=== PATIENT | female | born 1990 | race Caucasian/White ===

== ENCOUNTER 2021-03-22 21:00 | Inpatient (IN) | payer MEDICAID, OTHER ==
[~2021-03-22] VITALS: Ht 154.9 cm; Wt 98.0 kg
[~2021-03-22 21:00] MED LIST: OMEP10 PO
[2021-03-22 22:06] LABS: COVID AG,FIA SOURCE NASOPHARYNGEAL
[2021-03-22 22:14] LABS: BASOPHILS % (AUTO) 0.9 % (0.0-2.0); EOSINOPHILS % (AUTO) 0.4 % (1.0-6.0); HEMATOCRIT 39.8 % (36-46); HEMOGLOBIN 13.1 g/dL (12.0-16.0); LYMPHOCYTES # (AUTO) 1.6 K/uL (1.0-4.8); MEAN CORPUSCULAR HEMOGLOBIN 26.4 pg (26.0-34.0); MEAN CORPUSCULAR HGB CONC 32.8 G/dL (31.0-37.0); MEAN CORPUSCULAR VOLUME 80 fL (80-100); MONOCYTES # (AUTO) 0.5 K/uL (0.1-1.0); MONOCYTES % (AUTO) 7.2 % (2.0-9.0); NEUTROPHILS # (AUTO) 5.3 K/uL (1.8-7.7); NEUTROPHILS % (AUTO) 70.5 % (40.0-70.0); PLATELET COUNT (AUTO) 248 K/uL (150-450); RED BLOOD CELL COUNT(AUTO) 4.96 MIL/uL (4.00-5.20); RED CELL DISTRIBUTION WIDTH 15.9 % (11.5-14.5)
[2021-03-22 22:20] LABS: AMPHET/METH SCREEN,URINE NEGATIVE (NEGATIVE); BARBITURATE SCREEN, URINE NEGATIVE (NEGATIVE); BENZODIAZEPINES SCREEN,URINE NEGATIVE (NEGATIVE); CANNABINOID SCREEN,URINE NEGATIVE (NEGATIVE); COCAINE SCREEN,URINE NEGATIVE (NEGATIVE); METHADONE SCREEN, URINE NEGATIVE (NEGATIVE); OPIATE SCREEN,URINE NEGATIVE (NEGATIVE)
[2021-03-22 22:22] LABS: PHENCYCLIDINE SCREEN,URINE NEGATIVE (NEGATIVE)
[2021-03-22 22:39] LABS: SALICYLATE < 2.8 mg/dL (2.8-20.0)
[2021-03-22 22:44] LABS: ALANINE AMINOTRANSFERASE 18 U/L (12-78); ALBUMIN 3.5 g/dL (3.4-5.0); ALKALINE PHOSPHATASE 87 U/L (46-116); ANION GAP 14 mmol/L (8-16); ASPARTATE AMINOTRANSFERASE 20 U/L (15-37); BILIRUBIN,TOTAL 0.2 mg/dL (0.1-1.0); CALCIUM, TOTAL 8.6 mg/dL (8.8-10.5); CARBON DIOXIDE 20 mmol/L (22-29); CHLORIDE 105 mmol/L (98-107); CREATININE 0.75 mg/dL (0.60-1.30); GLOMERULAR FILTR. RATE CALC > 60 mL/min (>60); GLUCOSE,RANDOM 105 mg/dL (70-110); HCG,QUANTITATIVE < 1 mIU/mL (0-6); SODIUM SERUM 139 mmol/L (136-145); TOTAL PROTEIN, SERUM 8.1 g/dL (6.4-8.2); UREA NITROGEN, BLOOD 7 mg/dL (7-18)
[2021-03-22 22:51] LABS: POTASSIUM 2.9 mmol/L (3.5-5.1)
[2021-03-22 22:52] LABS: ACETAMINOPHEN < 2 mcg/mL (10-30)
[2021-03-22] MEDS ORDERED: LORazepam 2 MG TABLET PO PRN (23:00)
[2021-03-22] MEDS ORDERED: HALOPERIDOL 5 MG TABLET PO PRN (23:00)
[2021-03-22] MEDS ORDERED: ZOLPIDEM TARTRATE 10 MG TABLET PO PRN (23:00)
[2021-03-22] MEDS ORDERED: POTASSIUM CHLORIDE 20 MEQ ER TABLET PO ONE (23:00)
[2021-03-23] MEDS ORDERED: PERTUSS(ACELL),DIPH,TET VAC/PF 0.5 ML SYRINGE IM. ONE (01:45)
[2021-03-23 01:47] LABS: CHOL/HDL RATIO 4.4 (3.9-5.7); CHOLESTEROL 142 mg/dL (131-200); HDL CHOLESTEROL 32 mg/dL (40-60); LDL CHOL (CALC.) 87 mg/dL (0-130); TRIGLYCERIDES 117 mg/dL (15-150)
[2021-03-23 04:29] VITALS: BP 125/72
[2021-03-23] MEDS ORDERED: GuaiFENesin/D-METHORPHAN [SUGAR-FREE] 200-20MG/10 ML SYRUP UDCUP PO PRN (08:00)
[2021-03-23] MEDS ORDERED: LOPERAMIDE HCL 2 MG CAPSULE PO PRN (08:00)
[2021-03-23] MEDS ORDERED: CloNIDine HCL 0.1 MG TABLET PO PRN (08:00)
[2021-03-23] MEDS ORDERED: ALBUTEROL SULFATE HFA 90 MCG/PUFF 8 GM INHALER IH PRN (08:00)
[2021-03-23] MEDS ORDERED: DOCUSATE SODIUM 100 MG CAPSULE PO PRN (08:00)
[2021-03-23] MEDS ORDERED: MAG HYDROX/AL HYDROX/SIMETH ES 30 ML SUSPENSION UDCUP PO PRN (08:00)
[2021-03-23] MEDS ORDERED: PETROLATUM,WHITE 28 GM JELLY TP PRN (08:00)
[2021-03-23] MEDS ORDERED: MAGNESIUM HYDROXIDE SUSPENSION 30 ML UDCUP PO PRN (08:00)
[2021-03-23] MEDS ORDERED: NICOTINE 14 MG/24 HOUR PATCH TD PRN (08:00)
[2021-03-23] MEDS ORDERED: ONDANSETRON HCL 4 MG TABLET PO PRN (08:00)
[2021-03-23] MEDS ORDERED: IBUPROFEN 400 MG TABLET PO PRN (08:00)
[2021-03-23] MEDS ORDERED: ACETAMINOPHEN 325 MG TABLET PO PRN (08:00)
[2021-03-23 09:24] VITALS: BP 112/73
[2021-03-23] MEDS: OMEPRAZOLE 20 MG CAPSULE PO SCH ×2 (12:19→16:53)
[2021-03-23 12:37] VITALS: BP 128/72
[2021-03-23 14:40] VITALS: BP 127/68
[2021-03-23] MEDS: SERTRALINE HCL 50 MG TABLET PO SCH (14:53)
[2021-03-23 16:00] VITALS: BP 101/62
[2021-03-24 09:01] VITALS: BP 118/50
[2021-03-24] MEDS: OMEPRAZOLE 20 MG CAPSULE PO SCH ×2 (09:25→16:39)
[2021-03-24] MEDS: SERTRALINE HCL 50 MG TABLET PO SCH (09:26)
[2021-03-24 16:00] VITALS: BP 117/58
[2021-03-25] MEDS: SERTRALINE HCL 50 MG TABLET PO SCH (08:55)
[2021-03-25] MEDS: OMEPRAZOLE 20 MG CAPSULE PO SCH (08:55)
[2021-03-25 09:04] VITALS: BP 131/83
[2021-03-25] MEDS ORDERED: SERT-158 PO (12:08)
== END 2021-03-25 14:40 | disposition home or self-care (01) | DRG 754 ==
LOC: EMS 21:00 → 3EI 03-23 01:00 → UNDOADMIN 03-23 01:00 → B2S 03-23 01:00
PROVIDERS: ADMIT Psychiatry & Neurology Psychiatry; ATTEND Psychiatry & Neurology Psychiatry
DX: F32.9 Major depressive disorder, single episode, unspecified (principal); E83.51 Hypocalcemia; F12.90 Cannabis use, unspecified, uncomplicated; Z20.822 Contact with and (suspected) exposure to COVID-19; F41.9 Anxiety disorder, unspecified; K21.9 Gastro-esophageal reflux disease without esophagitis; E87.6 Hypokalemia; K29.70 Gastritis, unspecified, without bleeding; F17.210 Nicotine dependence, cigarettes, uncomplicated; S61.512A Laceration without foreign body of left wrist, initial encounter; T50.902A Poisoning by unspecified drugs, medicaments and biological substances, intentional self-harm, initial encounter; X78.1XXA Intentional self-harm by knife, initial encounter; Y93.89 Activity, other specified; Y92.89 Other specified places as the place of occurrence of the external cause; Y99.8 Other external cause status
CPT/HCPCS: 80053; 80061; 84132; 84702; 85025; 90715; 93005; 99285; G0480; G0481